=== PATIENT | male | born 2000 | race Caucasian/White ===

== ENCOUNTER → 2020-03-23 | Outpatient (CLI) | payer BC ==
[~2020-03-23] VITALS: Ht 175.3 cm; Wt 77.6 kg
[~2020-03-23] MED LIST: CEFAZOLIN SODIUM 1 GM VIAL IVP SCH
[2020-03-23 10:11] LABS: BASOPHILS % (AUTO) 0.4 % (0.0-5.0); EOSINOPHILS % (AUTO) 2.3 % (0.0-8.0); HEMATOCRIT 46.8 % (42-54); LYMPHOCYTES % (AUTO) 35.3 % (21.0-51.0); MEAN CORPUSCULAR HEMOGLOBIN 29.2 pg (27.0-33.0); MEAN CORPUSCULAR HGB CONC 31.8 g/dL (32.0-36.0); MEAN CORPUSCULAR VOLUME 91.6 fL (80-100); MONOCYTES % (AUTO) 7.6 % (3.0-13.0); NEUTROPHILS % (AUTO) 54.2 % (40.0-77.0); PLATELET COUNT (AUTO) 205 K/uL (130-400); RED BLOOD CELL COUNT(AUTO) 5.11 MIL/uL (4.50-6.20); RED CELL DISTRIBUTION WIDTH 13.2 % (11.0-15.5); WHITE BLOOD COUNT (AUTO) 5.6 K/uL (4.8-10.8)
[2020-03-23 10:22] LABS: POTASSIUM 5.2 mmol/L (3.5-5.1)
--- NOTE | 2020-03-24 12:10 | NUR ---
report faxed over bmp to dr atkins's office for review. elan with dr atkins will have md review and call back with any changes to orders
[2020-03-24 12:46] VITALS: BP 106/65
--- NOTE | 2020-03-24 14:20 | NUR ---
REPORT CALLED DR MORALES OFFICE AND SPOKE TO [facility]LE[facility]. INFORMED PT COVID POSITIVE. THEY WILL NOTIFY PT
== END ==
LOC: EDSTATUS 10:00 → DAH 10:00
PROVIDERS: ATTEND Surgery
DX: Z01.818 Encounter for other preprocedural examination (principal); L05.01 Pilonidal cyst with abscess; Z11.59 Encounter for screening for other viral diseases
CPT/HCPCS: 36415; 80048; 85025; A6260; C9803; U0003

== ENCOUNTER 2020-04-18 06:55 | Day surgery (SDC) | payer BC ==
[2020-04-11 11:32] LABS: BASOPHILS % (AUTO) 0.4 % (0.0-5.0); EOSINOPHILS % (AUTO) 2.3 % (0.0-8.0); HEMATOCRIT 47.2 % (42-54); LYMPHOCYTES % (AUTO) 38.2 % (21.0-51.0); MEAN CORPUSCULAR HEMOGLOBIN 29.6 pg (27.0-33.0); MEAN CORPUSCULAR HGB CONC 32.2 g/dL (32.0-36.0); MEAN CORPUSCULAR VOLUME 91.8 fL (80-100); MONOCYTES % (AUTO) 8.5 % (3.0-13.0); NEUTROPHILS % (AUTO) 50.4 % (40.0-77.0); PLATELET COUNT (AUTO) 209 K/uL (130-400); RED BLOOD CELL COUNT(AUTO) 5.14 MIL/uL (4.50-6.20); RED CELL DISTRIBUTION WIDTH 12.9 % (11.0-15.5); WHITE BLOOD COUNT (AUTO) 5.7 K/uL (4.8-10.8)
[2020-04-11 11:42] LABS: POTASSIUM 4.5 mmol/L (3.5-5.1)
[~2020-04-18] VITALS: Ht 177.8 cm; Wt 77.1 kg
[2020-04-18] VITALS (15 sets, daily range): BP systolic 92–136; BP diastolic 46–58
[~2020-04-18 06:55] MED LIST changes: +SODIUM CHLORIDE 0.9% 1000ML 1,000 ML IV SCH
[2020-04-18] MEDS ORDERED: LACTATED RINGERS 1000ML 1,000 ML IV ONE (07:11)
[2020-04-18] MEDS: CEFAZOLIN SODIUM 1 GM VIAL ONE ×2 (07:43→10:15)
[2020-04-18] MEDS ORDERED: SUCCINYLCHOLINE 200MG/10ML SYR ONE (09:57)
[2020-04-18] MEDS ORDERED: MIDAZOLAM HCL 1 MG/ML 2ML VIAL ONE (09:57)
[2020-04-18] MEDS ORDERED: LIDOCAINE PF 2% 5ML ABBOJECT ONE (09:57)
[2020-04-18] MEDS ORDERED: FENTANYL CITRATE PF 50 MCG/1 ML 2ML VIAL ONE (09:57)
[2020-04-18] MEDS ORDERED: PROPOFOL 10 MG/ML 20ML VIAL IV ONE (09:57)
[2020-04-18] MEDS ORDERED: ROCURONIUM 10MG/1ML SYR 10 MG/ML ML ONE (10:01)
[2020-04-18] MEDS ORDERED: ONDANSETRON HCL 4 MG/2 ML VIAL ONE (10:02)
[2020-04-18] MEDS ORDERED: DEXAMETHASONE SOD PHOSPHATE 10MG/ML 1ML VIAL ONE (10:02)
[2020-04-18] MEDS ORDERED: BUPIVACAINE/PF 0.5% 30ML VIAL ONE (10:48)
[2020-04-18] MEDS ORDERED: KETOROLAC TROMETHAMINE 30MG/ML ONE (10:50)
[2020-04-18] MEDS ORDERED: MEPERIDINE-PF 25 MG/ML SYG ONE (11:23)
--- NOTE | 2020-04-18 12:10 | NUR ---
PATIENT BROUGHT TO DAY PATIENT VIA STRETCHER BY CARISSA SEPULVEDA. PATIENT AAOX3, RESPIRATIONS UNLABORED, VITAL SIGNS STABLE, DENIES ANY PAIN AT THIS TIME. DRESSING TO COCCYX IS DRY AND INTACT, NO DRAINAGE OR BLEEDING NOTED.
--- NOTE | 2020-04-18 12:30 | NUR ---
DISCHARGE INSTRUCTIONS PROVIDED TO PATIENT'S MOTHER VIA TELEPHONE. INSTRUCTED TO CALL OFFICE AND MAKE APPOINTMENT IN 1-2 WEEKS. PRESCRIPTION PROVIDED WELL.
--- NOTE | 2020-04-18 12:40 | NUR ---
PATIENT DISCHARGED FROM HOSPITAL VIA WHEELCHAIR BY JAVIER YADAV RN AND ASSISTED INTO PRIVATE VEHICLE DRIVEN BY FAMILY MEMBER.
== END 2020-04-18 12:40 | disposition home or self-care (01) ==
LOC: DAH 06:55
PROVIDERS: ATTEND Surgery
DX: L05.01 Pilonidal cyst with abscess (principal); Z88.0 Allergy status to penicillin; Z98.890 Other specified postprocedural states; Z79.899 Other long term (current) drug therapy
CPT/HCPCS: 11771; 36415; 80048; 85025; A4215 ×2; A4221; A4222; A4223; A4606; A4663; A4930; A6260; J0330; J0690; J1100; J1885; J2001; J2175; J2250; J2405; J2704; J3010; J3490; J7030; J7120

== ENCOUNTER 2020-07-23 10:42 | Emergency (ER) | payer BC ==
[2020-07-23 11:58] LABS: BASOPHILS % (AUTO) 1.3 % (0.0-5.0); EOSINOPHILS % (AUTO) 0.4 % (0.0-8.0); HEMATOCRIT 44.7 % (42-54); LYMPHOCYTES % (AUTO) 67.5 % (21.0-51.0); MEAN CORPUSCULAR HEMOGLOBIN 30.9 pg (27.0-33.0); MEAN CORPUSCULAR HGB CONC 33.6 g/dL (32.0-36.0); MEAN CORPUSCULAR VOLUME 92.2 fL (80-100); MONOCYTES % (AUTO) 5.6 % (3.0-13.0); PLATELET COUNT (AUTO) 170 K/uL (130-400); RED BLOOD CELL COUNT(AUTO) 4.85 MIL/uL (4.50-6.20); RED CELL DISTRIBUTION WIDTH 14.6 % (11.0-15.5); WHITE BLOOD COUNT (AUTO) 12.4 K/uL (4.8-10.8)
[2020-07-23] MEDS ORDERED: DEXAMETHASONE SOD PHOSPHATE 10MG/ML 1ML VIAL ONE (12:07)
[2020-07-23] MEDS ORDERED: CLINDAMYCIN 600 MG/D5% WATER 50 ML IV ONE (12:08)
[2020-07-23] MEDS ORDERED: KETOROLAC TROMETHAMINE 30MG/ML ONE (12:08)
[2020-07-23 12:11] LABS: CREATININE 1.2 mg/dL (0.5-1.5); POTASSIUM 4.4 mmol/L (3.5-5.1)
[2020-07-23 12:14] LABS: RAPID GROUP A STREP NEGATIVE (NEGATIVE)
[2020-07-23 12:16] LABS: ALBUMIN 3.5 g/dL (3.5-5.0); BILIRUBIN,TOTAL 0.6 mg/dL (0.2-1.0); TOTAL PROTEIN, SERUM 8.6 g/dL (6.0-8.3)
[2020-07-23] MEDS ORDERED: IOHEXOL-350 50ML VIAL IV ONE (12:55)
[2020-07-23 12:56] LABS: EOSINOPHILS % (MANUAL) 1 % (1-6); LYMPHOCYTES % (MANUAL) 41 % (22-44); MONOCYTES % (MANUAL) 5 % (2-9); REACTIVE LYMPHOCYTES 21 % (0-0); SEGMENTED NEUTROPHILS % 32 % (40-70)
[2020-07-23 12:57] LABS: MAN.DIFF COMMENT-IMPRESSION MANUAL DIFFERENTIAL; PLATELET MORPHOLOGY COMMENT ADEQUATE
== END 2020-07-23 15:40 | disposition home or self-care (01) ==
LOC: EDH 10:42
DX: J02.9 Acute pharyngitis, unspecified (principal)
CPT/HCPCS: 36415; 70491; 80053; 85025; 86308; 87070; 87077; 87186; 87804 ×2; 87880; 96365; 96366; 96375; 99285; J1100; J1885; J3490; Q9967